=== PATIENT | female | born 1940 ===

== ENCOUNTER → 2022-05-18 09:34 | Outpatient (BNVA) | payer OTHER, SELFPAY | PROVIDERS: PCP Internal Medicine; Visit Provider Psychiatry & Neurology Neurology | DX: R20.0 Anesthesia of skin (principal); R26.9 Unspecified abnormalities of gait and mobility | CPT/HCPCS: 99202 ==

== ENCOUNTER → 2022-07-19 13:21 | Outpatient (BNVA) | payer OTHER, SELFPAY | PROVIDERS: PCP Internal Medicine; Visit Provider Nurse Practitioner Family | DX: R20.0 Anesthesia of skin (principal); R26.9 Unspecified abnormalities of gait and mobility; I82.503 Chronic embolism and thrombosis of unspecified deep veins of lower extremity, bilateral; I83.893 Varicose veins of bilateral lower extremities with other complications | CPT/HCPCS: 99212 ==

== ENCOUNTER → 2022-09-29 10:39 | Outpatient (BNVA) | payer OTHER, SELFPAY | PROVIDERS: PCP Internal Medicine; Visit Provider Nurse Practitioner Family | DX: G57.93 Unspecified mononeuropathy of bilateral lower limbs (principal); R26.9 Unspecified abnormalities of gait and mobility; R20.0 Anesthesia of skin | CPT/HCPCS: 99212 ==